=== PATIENT | female | born 1965 | race American Indian/Alaskan Native ===

== ENCOUNTER 2020-06-09 16:17 | Emergency (ER) | payer SELFPAY ==
[2020-06-09 16:41] VITALS: BP 151/88
[2020-06-09] MEDS ORDERED: diphenhydrAMINE 25 MG CAP PO ONE (20:26)
[2020-06-09] MEDS ORDERED: predniSONE 50 MG TAB PO ONE (20:26)
[2020-06-09] MEDS ORDERED: ACETAMINOPHEN 500 MG TAB PO ONE (20:26)
--- NOTE | 2020-06-09 20:29 | Emergency Department Report ---
ED General Adult HPI - General Chief complaint: Skin Rash Stated complaint: RIGHT PAIN, RASH Source: patient Mode of arrival: Ambulatory Limitations: No Limitations - History of Present Illness Initial comments: Patient is a 54-year-old -[place] female with no past medical history presents to the ED with complaint of acute onset persistent painful burning itchy erythematous maculopapular dry scaly rashes around her neck for the last 2 days. Patient states that she tried to apply hydrocortisone cream over it but the itching on the burning sensation got worse. Patient denies traumatic injury, insect bite, nausea, vomiting, shortness of breath, cough, dizziness, swollen lips or tongue, dysphagia, dysphonia, change in vision, diarrhea, syncope, fever and chills. MD Complaint: Itchy erythematous burning rash on neck -: Sudden, days(s) (2) Location: neck Radiation: non-radiation Severity scale (0 -10): 7 Quality: burning, aching, sharp Consistency: constant Improves with: none Worsens with: none Associated Symptoms: denies other symptoms, rash (Erythematous maculopapular dry scaly rashes on the neck). denies: confusion, chest pain, cough, diaphoresis, fever/chills, headaches, loss of appetite, malaise, nausea/vomiting, seizure, shortness of breath, syncope, weakness Treatments Prior to Arrival: none - Related Data Previous Rx's Medication Instructions Recorded Last Taken Type Ketorolac [Toradol] 10 mg PO Q6H PRN #20 tablet 02/25/20 Unknown Rx methOCARBAMOL [Robaxin TAB] 500 mg PO Q8H PRN #30 tablet 02/25/20 Unknown Rx Griseofulvin, Microsize 500 mg PO DAILY #30 tablet 06/09/20 Unknown Rx [Griseofulvin] Naproxen 500 mg PO Q12H PRN #30 tablet 06/09/20 Unknown Rx hydrOXYzine PAMOATE [Vistaril] 25 mg PO Q6HR PRN #40 capsule 06/09/20 Unknown Rx Allergies Allergy/AdvReac Type Severity Reaction Status Date / Time No Known Allergies Allergy Verified 02/25/20 15:55 ED Review of Systems ROS: Stated complaint: RIGHT PAIN, RASH Other details as noted in HPI Constitutional: denies: chills, fever Eyes: denies: eye pain, eye discharge, vision change ENT: denies: ear pain, throat pain Respiratory: denies: cough, shortness of breath, wheezing Cardiovascular: denies: chest pain, palpitations Endocrine: no symptoms reported Gastrointestinal: denies: abdominal pain, nausea, vomiting, diarrhea Genitourinary: denies: urgency, dysuria, discharge Musculoskeletal: denies: back pain, joint swelling, arthralgia Skin: rash (Itchy burning erythematous maculopapular dry scaly rashes on the nec k), change in color, pruritus. denies: lesions Neurological: denies: headache, weakness, paresthesias Psychiatric: denies: anxiety, depression Hematological/Lymphatic: denies: easy bleeding, easy bruising ED Past Medical Hx - Past Medical History Previous Medical History?: No - Surgical History Past Surgical History?: No - Social History Smoking Status: Never Smoker Substance Use Type: None - Medications Home Medications: Home Medications Medication Instructions Recorded Confirmed Last Taken Type Ketorolac [Toradol] 10 mg PO Q6H PRN #20 tablet 02/25/20 Unknown Rx methOCARBAMOL [Robaxin TAB] 500 mg PO Q8H PRN #30 tablet 02/25/20 Unknown Rx Griseofulvin, Microsize 500 mg PO DAILY #30 tablet 06/09/20 Unknown Rx [Griseofulvin] Naproxen 500 mg PO Q12H PRN #30 tablet 06/09/20 Unknown Rx hydrOXYzine PAMOATE [Vistaril] 25 mg PO Q6HR PRN #40 capsule 06/09/20 Unknown Rx ED Physical Exam - General Limitations: No Limitations General appearance: alert, in no apparent distress - Head Head exam: Present: atraumatic, normocephalic, normal inspection - Eye Eye exam: Present: normal appearance, PERRL, EOMI Pupils: Present: normal accommodation - ENT ENT exam: Present: normal exam, normal orophraynx, mucous membranes moist, TM's normal bilaterally, normal external ear exam - Neck Neck exam: Present: normal inspection, full ROM, other (Erythematous tender maculopapular dry scaly rash around the neck) - Respiratory Respiratory exam: Present: normal lung sounds bilaterally. Absent: respiratory distress, wheezes, rales, stridor, chest wall tenderness, accessory muscle use, decreased breath sounds - Cardiovascular Cardiovascular Exam: Present: regular rate, normal rhythm, normal heart sounds. Absent: systolic murmur, diastolic murmur, rubs, gallop - GI/Abdominal GI/Abdominal exam: Present: soft, normal bowel sounds. Absent: tenderness, guarding, rebound, hyperactive bowel sounds, hypoactive bowel sounds - Extremities Exam Extremities exam: Present: normal inspection, full ROM, normal capillary refill - Back Exam Back exam: Present: normal inspection, full ROM. Absent: tenderness, CVA tenderness (R), CVA tenderness (L), muscle spasm, paraspinal tenderness, vertebral tenderness - Neurological Exam Neurological exam: Present: alert, oriented X3, CN II-XII intact, normal gait, reflexes normal - Psychiatric Psychiatric exam: Present: normal affect, normal mood - Skin Skin exam: Present: warm, dry, intact, rash (Erythematous maculopapular dry scaly tender rashes around the neck), erythema ED Course Vital Signs 06/09/20 16:40 Temperature 98.1 F Pulse Rate 99 H Respiratory 18 Rate Blood Pressure 151/88 O2 Sat by Pulse 98 Oximetry ED Medical Decision Making - Medical Decision Making This is a 54-year-old -[place] female with no past medical history presents to the ED with complaint of acute onset persistent painful burning itchy erythematous maculopapular dry scaly rashes around her neck for the last 2 days. Patient states that she tried to apply hydrocortisone cream over it but the itching on the burning sensation got worse. In the ED, patient is alert and oriented x3 and is not in distress. Patient was treated in the ED for pain and also treated for itching. Patient was discharged home on medications and advised to follow-up with her primary care physician in 7 to 10 days for reevaluation. Patient was advised return to the ED immediately if symptoms get worse. - Differential Diagnosis tinea corporis; allergic reaction; irritant dermatitis; Urticaria Critical care attestation.: If time is entered above; I have spent that time in minutes in the direct care of this critically ill patient, excluding procedure time. ED Disposition Clinical Impression: Tinea corporis, Itching with irritation Sprain of right knee Qualifiers: Encounter type: initial encounter Involved ligament of knee: other ligament Qualified Code(s): S83.8X1A - Sprain of other specified parts of right knee, initial encounter Disposition: TO HOME OR SELFCARE Is pt being admited?: No Does the pt Need Aspirin: No Condition: Stable Instructions: Tinea Corporis (ED), Itchy Skin (ED) Additional Instructions: Take medication with food, drink plenty of fluids and follow-up with your primary care physician in 7 to 10 days for reevaluation. Avoid alcohol consumption when taking these medications. Return to the ED should you develop right upper quadrant abdominal pain and stop the medicine immediately. Prescriptions: Griseofulvin, Microsize [Griseofulvin] 500 mg PO DAILY #30 tablet Naproxen 500 mg PO Q12H PRN #30 tablet PRN Reason: Pain , Severe (7-10) hydrOXYzine PAMOATE [Vistaril] 25 mg PO Q6HR PRN #40 capsule PRN Reason: Itching Referrals: [facility] [Provider Group] - 3-5 Days Time of Disposition: 20:30 Print Language: TURKISH
== END 2020-06-09 18:55 | disposition home or self-care (01) ==
LOC: ED 16:17
DX: S83.8X1A Sprain of other specified parts of right knee, initial encounter (principal); B35.4 Tinea corporis; Z79.899 Other long term (current) drug therapy; X58.XXXA Exposure to other specified factors, initial encounter; Y93.89 Activity, other specified; Y92.89 Other specified places as the place of occurrence of the external cause; Y99.8 Other external cause status
CPT/HCPCS: 99282; J7512

== ENCOUNTER 2021-06-08 16:47 | Emergency (ER) | payer SELFPAY ==
[2021-06-08 17:20] VITALS: BP 157/101
--- NOTE | 2021-06-08 17:37 | Emergency Department Report ---
HPI - General Chief Complaint: Dental/Oral - HPI HPI: Triage Patient is a 55-year-old female present with a chief complaint of dental pain. The patient states 1 week agoshe was picking at one of her broken teeth and a piece came off. Patient states she has had throbbing pain since. The patient states she has an appointment to see her dentist 06/13/2021 patient comes emergency department for control of her pain. Patient currently gives her pain a score of 10/10. Patient denies history of fever ED Past Medical Hx - Past Medical History Previous Medical History?: Yes Hx Hypertension: Yes - Surgical History Past Surgical History?: No Additional Surgical History: Right wrist surgery - Family History Family history: no significant - Social History Smoking Status: Current Every Day Smoker (1/2 pack/day) Substance Use Type: None (Denies illicit drug use), Alcohol (Occasional) - Medications Home Medications: Home Medications Medication Instructions Recorded Confirmed Last Taken Type Ketorolac [Toradol] 10 mg PO Q6H PRN #20 tablet 02/25/20 Unknown Rx methOCARBAMOL [Robaxin TAB] 500 mg PO Q8H PRN #30 tablet 02/25/20 Unknown Rx Griseofulvin, Microsize 500 mg PO DAILY #30 tablet 06/09/20 Unknown Rx [Griseofulvin] Naproxen 500 mg PO Q12H PRN #30 tablet 06/09/20 Unknown Rx hydrOXYzine PAMOATE [Vistaril] 25 mg PO Q6HR PRN #40 capsule 06/09/20 Unknown Rx Ketoconazole 2% [Nizoral] 1 applicatio TP QDAY #1 tube 06/11/20 Unknown Rx Amoxicillin [Amoxicillin TAB] 875 mg PO BID #14 tablet 06/08/21 Unknown Rx HYDROcodone/APAP 5-325 [[place] 1 - 2 each PO Q6HR PRN #14 tablet 06/08/21 Unknown Rx 5/325] Ibuprofen [Motrin 800 MG tab] 800 mg PO Q8HR PRN #20 tablet 06/08/21 Unknown Rx ED Review of Systems ROS: Stated complaint: BROKE TOOTH/MOUTH NUMB Other details as noted in HPI Constitutional: no symptoms reported. denies: fever Eyes: denies: eye pain ENT: dental pain Respiratory: denies: cough Cardiovascular: denies: chest pain Endocrine: no symptoms reported Gastrointestinal: denies: abdominal pain Genitourinary: denies: dysuria Musculoskeletal: denies: back pain Neurological: denies: headache Physical Exam - Physical Exam Vital Signs: Vital Signs 06/08/21 17:18 Temperature 99.1 F Pulse Rate 88 Respiratory 20 Rate Blood Pressure 157/101 O2 Sat by Pulse 98 Oximetry Physical Exam: GENERAL: The patient is well-developed well-nourished female standing in room not appearing to be in acute distress HEENT: Normocephalic. Atraumatic. Extraocular motions are intact. Patient has moist mucous membranes. Teeth 30, 31 and 32 mostly missing. Fragment of tooth #32 present. No active discharge seen. No genital erythema appreciated. NECK: Supple. Trachea midline CHEST/LUNGS: Clear to auscultation. There is no respiratory distress noted. HEART/CARDIOVASCULAR: Regular. There is no tachycardia. There is no gallop rub or murmur. ABDOMEN: Abdomen is soft, nontender. Patient has normal bowel sounds. There is no abdominal distention. SKIN: There is no rash. There is no edema. There is no diaphoresis. NEURO: The patient is awake, alert, and oriented. The patient is cooperative. The patient has no focal neurologic deficits. The patient has normal speech and gait. GCS 15 MUSCULOSKELETAL:There is no evidence of acute injury. ED Course Vital Signs 06/08/21 17:18 Temperature 99.1 F Pulse Rate 88 Respiratory 20 Rate Blood Pressure 157/101 O2 Sat by Pulse 98 Oximetry ED Medical Decision Making - Differential Diagnosis Dental pain Critical care attestation.: If time is entered above; I have spent that time in minutes in the direct care of this critically ill patient, excluding procedure time. ED Disposition Clinical Impression: Pain, dental Disposition: 01 HOME / SELF CARE / HOMELESS Is pt being admited?: No Does the pt Need Aspirin: No Condition: Stable Instructions: Acute Pain, Adult Additional Instructions: Return to the emergency department should you develop worsening symptoms, inability to tolerate food or liquids, high fever or any other concerns Prescriptions: Amoxicillin [Amoxicillin TAB] 875 mg PO BID #14 tablet Ibuprofen [Motrin 800 MG tab] 800 mg PO Q8HR PRN #20 tablet PRN Reason: Pain, Moderate (4-6) HYDROcodone/APAP 5-325 [[place] 5/325] 1 - 2 each PO Q6HR PRN #14 tablet PRN Reason: Pain Referrals: [facility] [Outside] - 3-5 Days Time of Disposition: 17:37
== END 2021-06-09 17:50 | disposition home or self-care (01) ==
LOC: ED 16:47
DX: K08.89 Other specified disorders of teeth and supporting structures (principal); Z79.899 Other long term (current) drug therapy
CPT/HCPCS: 99281

== ENCOUNTER 2021-07-30 12:08 | Emergency (ER) | payer SELFPAY ==
--- NOTE | 2021-07-30 14:51 | Emergency Department Report ---
Upper Extremity - HPI Chief Complaint: Extremity Problem,Nontraumatic Stated Complaint: INJURY TO LT ARM Time Seen by Provider: 07/30/21 14:45 Upper Extremity: Left Shoulder, Left Arm, Left Elbow Occurred When: >5 Days Symptoms: Yes Pain with Movement, No Limited Range of Movement, No Numbness, No Weakness, No Swelling, No Bruising/Ecchymosis, No Laceration or Abrasion Other History: 55-year-old -Polish female presents to the emergency room for nontraumatic left arm pain. This is acute on chronic problem. 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 She states she has been taking ibuprofen without much relief. Patient has not followed up by her primary care provider for this complaint. Patient states that this has flared up in the last 2 days. ED Review of Systems ROS: Stated complaint: INJURY TO LT ARM Other details as noted in HPI ED Past Medical Hx - Past Medical History Previous Medical History?: Yes Hx Hypertension: Yes - Surgical History Past Surgical History?: Yes Additional Surgical History: Right wrist surgery - Social History Smoking Status: Current Some Day Smoker - Medications Home Medications: Home Medications Medication Instructions Recorded Confirmed Last Taken Type Ketorolac [Toradol] 10 mg PO Q6H PRN #20 tablet 02/25/20 07/30/21 Unknown Rx methOCARBAMOL [Robaxin TAB] 500 mg PO Q8H PRN #30 tablet 02/25/20 07/30/21 Unknown Rx Griseofulvin, Microsize 500 mg PO DAILY #30 tablet 06/09/20 07/30/21 Unknown Rx [Griseofulvin] Naproxen 500 mg PO Q12H PRN #30 tablet 06/09/20 07/30/21 Unknown Rx hydrOXYzine PAMOATE [Vistaril] 25 mg PO Q6HR PRN #40 capsule 06/09/20 07/30/21 Unknown Rx Ketoconazole 2% [Nizoral] 1 applicatio TP QDAY #1 tube 06/11/20 07/30/21 Unknown Rx Amoxicillin [Amoxicillin TAB] 875 mg PO BID #14 tablet 06/08/21 07/30/21 Unknown Rx HYDROcodone/APAP 5-325 [[place] 1 - 2 each PO Q6HR PRN #14 tablet 06/08/21 07/30/21 Unknown Rx 5/325] Ibuprofen [Motrin 800 MG tab] 800 mg PO Q8HR PRN #20 tablet 06/08/21 07/30/21 Unknown Rx Acetaminophen [Acetaminophen 8 650 mg PO Q8H PRN #30 tablet.er 07/30/21 Unknown Rx Hour] Diclofenac Sodium [Voltaren 1 applic TP Q8H PRN #20 gel..gram. 07/30/21 Unknown Rx Arthritis Pain] Upper Extremity Exam - Exam General: Vital signs noted. No distress. Alert and acting appropriately. Head and Torso: No HEENT Abnormality, No Neck Tenderness, No Chest/Lungs Abnormality, No Abdominal Tenderness, No Back Tenderness Shoulder Exam: Yes Normal Range of Motion in Shoulder, No Shoulder Tenderness, No Clavicle Tenderness, No Shoulder Deformity, No AC Joint Tenderness Arm Exam: No Arm/Humerus Tenderness, No Arm Deformity Elbow: Yes Elbow Tenderness, Yes Normal Range of Motion in Elbow, No Elbow Deformity Forearm: Yes Forearm Tenderness, No Forearm Deformity, No Pain with Pronation, No Pain with Supination Wrist: Yes Normal ROM in Wrist Hand: Yes Normal ROM in Digit(s), No Hand Tenderness, No Hand Deformity, No Digit Tenderness, No Digit(s) Deformity, No Tendon Dysfunction ED Course Vital Signs 07/30/21 07/30/21 13:08 13:12 Temperature 97.8 F Pulse Rate 73 Respiratory 14 Rate Blood Pressure 121/76 [Right] O2 Sat by Pulse 99 99 Oximetry ED Medical Decision Making - Medical Decision Making 55-year-old -Polish female presents to the emergency room for nontraumatic left arm pain. This is acute on chronic problem. 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 She states she has been taking ibuprofen without much relief. Patient has not followed up by her primary care provider for this complaint. Patient states that this has flared up in the last 2 days. Left arm nontraumatic no swelling mild tenderness to the left forearm full range of motion able to supinate and pronate without difficulties. Discussed with patient she can try taking Tylenol arthritis 3 times a day and use [id number] Voltaren gel and to follow-up with the primary care provider. Discussed with patient this is most likely due to her driving daily. Critical care attestation.: If time is entered above; I have spent that time in minutes in the direct care of this critically ill patient, excluding procedure time. ED Disposition Clinical Impression: Left upper arm pain Disposition: HOME / SELF CARE / HOMELESS Is pt being admited?: No Does the pt Need Aspirin: No Condition: Stable Additional Instructions: Please take pain medication in pain topical medication to your left arm as prescribed. Is very important to follow-up with an orthopedics. As I discussed most likely your nontraumatic left arm pain is due to your use of driving daily. Prescriptions: Acetaminophen [Acetaminophen 8 Hour] 650 mg PO Q8H PRN #30 tablet.er PRN Reason: Pain , Severe (7-10) Diclofenac Sodium [Voltaren Arthritis Pain] 1 applic TP Q8H PRN #20 gel..gram. PRN Reason: Pain , Severe (7-10) Referrals: FAHEEM SORIA MD [Staff Physician] - 3-5 Days Forms: Work/School Release Form(ED) Time of Disposition: 14:52
[2021-07-30 14:57] VITALS: BP 146/92
== END 2021-07-30 15:04 | disposition home or self-care (01) ==
LOC: ED 12:08
DX: M79.622 Pain in left upper arm (principal); I10 Essential (primary) hypertension; Z98.890 Other specified postprocedural states; F17.200 Nicotine dependence, unspecified, uncomplicated
CPT/HCPCS: 99282

== ENCOUNTER 2021-08-03 13:04 | Emergency (ER) | payer SELFPAY | END 2021-08-03 15:30 | disposition left against medical advice (07) | LOC: ED 13:04 | DX: M79.602 Pain in left arm (principal); Z53.21 Procedure and treatment not carried out due to patient leaving prior to being seen by health care provider ==